=== PATIENT | male | born 1990 | race Two or more races ===

== ENCOUNTER 2023-02-03 07:57 | Emergency (ER) | payer OTHER ==
[~2023-02-03] VITALS: Ht 180.3 cm; Wt 78.5 kg
[2023-02-03] MEDS ORDERED: METAXALONE800 MG PO (11:06)
[2023-02-03] MEDS ORDERED: CELEBREX200MG PO (11:06)
== END 2023-02-03 11:37 | disposition home or self-care (01) ==
LOC: ER 07:57
DX: S13.4XXA Sprain of ligaments of cervical spine, initial encounter (principal); S73.192A Other sprain of left hip, initial encounter; S43.491A Other sprain of right shoulder joint, initial encounter; W18.39XA Other fall on same level, initial encounter; Y93.02 Activity, running; Y92.89 Other specified places as the place of occurrence of the external cause; Y99.8 Other external cause status